=== PATIENT | female | born 1995 | race Two or more races ===

== ENCOUNTER 2020-12-27 12:26 | Emergency (ER) | payer SELFPAY ==
[~2020-12-27] VITALS: Ht 154.9 cm; Wt 49.9 kg
[2020-12-27 12:41] VITALS: BP 108/63
== END 2020-12-27 19:33 | disposition left against medical advice (07) ==
LOC: ER 12:26
DX: K62.5 Hemorrhage of anus and rectum (principal); Z53.21 Procedure and treatment not carried out due to patient leaving prior to being seen by health care provider

== ENCOUNTER 2021-03-31 12:36 | Emergency (ER) | payer OTHER ==
[~2021-03-31] VITALS: Ht 154.9 cm; Wt 52.2 kg
[2021-03-31 12:56] VITALS: BP 107/68
== END 2021-03-31 13:59 | disposition home or self-care (01) ==
LOC: ER 12:36
DX: S69.82XA Other specified injuries of left wrist, hand and finger(s), initial encounter (principal); W22.8XXA Striking against or struck by other objects, initial encounter; Y93.89 Activity, other specified; Y92.89 Other specified places as the place of occurrence of the external cause; Y99.8 Other external cause status

== ENCOUNTER 2023-11-26 12:40 | Emergency (ER) | payer OTHER ==
[~2023-11-26] VITALS: Ht 154.9 cm; Wt 57.8 kg
[2023-11-26] MEDS ORDERED: METH4PAK PO (14:31)
[2023-11-26] MEDS ORDERED: TRIA0.1O TOP (14:31)
[2023-11-26] MEDS ORDERED: HYDR-3682 PO (14:31)
[2023-11-26 14:40] VITALS: BP 116/66; PULSE 78; RESP 18; TEMP 98.9; O2SAT 99
== END 2023-11-26 14:47 | disposition home or self-care (01) ==
LOC: ER 12:40
DX: R21 Rash and other nonspecific skin eruption (principal); Z79.899 Other long term (current) drug therapy